=== PATIENT | male | born 1960 | race Caucasian/White ===

== ENCOUNTER 2024-12-04 00:08 | Day surgery (SDC) | payer OTHER, SELFPAY ==
[2024-11-25 10:57] VITALS: BMI 25.4
--- OUTSIDE RECORDS SUMMARY | 2024-12-04 00:11 | XMS_ITS | Clinical Summary ---
Author Organization [facility] Address [address] [place] [id number] Care Team Providers Care Vascular Physician Name Role Phone Unavailable Primary Care Provider Unavailabl e Social History Tobacco Use Types Packs/Day Years Used Date Smoking Tobacco: Never Assessed Sex and Gender Information Value Date Recorded Sex Assigned at Not on file Legal Sex Male 5:52 PM CDT Gender Identity Not on file Sexual Orientation Not on file Plan of Treatment Health Maintenance Due Date Last Done Comments Colorectal Cancer Screening Colonoscopy (10 Years) 1960 Annual Physical 01/15/1963 Hepatitis C 01/15/1978 DTaP, Tdap and Td Vaccines ( 1 - Tdap) 01/15/1979 Pneumococcal Vaccine: 50+ Ye ars (1 of 1 - PCV) 01/15/2010 Zoster Vaccines (1 of 2) 01/15/2010 COVID-19 Vaccine (2023-2 5 season) 2024 RSV Immunization or 60+ Years (1 - 1-dose 75+ series) 01/15/2035 Meningococcal B Vaccine Aged Out No l onger eligible based on patient's age to complete this topic Meningococcal Vaccine Aged Out No saray marry eligible based on patient's age to complete this topic RSV Immunizations Under 20 Months Aged Out No longer eligible based on patient's age to complete this topic Insurance [employer]
[2024-12-04 10:50] VITALS: BP 137/88; PULSE 72; RESP 16; TEMP 36.6; O2SAT 100; BMI 24.4
[2024-12-04] MEDS: LACTATED RINGERS 1,000 ML 150 ML IV CONT (10:54)
--- NOTE | 2024-12-04 12:10 | WPDANESEPPF ---
Anes - Initial Pre Proc Eval Procedure: Operation Date: 12/04/24 14:30 Proposed Procedures p Screening Colonoscopy - Mehdi Hassan MD Date/Time: 12/04/24 12:10 Surgeon: Mehdi Hassan MD Pre Op Diagnosis: Encounter for screening for malignant neoplasm of Patient Data Age: 64 Gender: M Height: 1.83 m Weight: 81.6 kg Last Vital Signs Temp 36.6 C 12/04/24 10:50 Pulse 72 12/04/24 10:50 Resp 16 12/04/24 10:50 BP 137/88 12/04/24 10:50 Pulse Ox 100 12/04/24 10:50 O2 Del Method Room Air 12/04/24 10:50 Allergies Allergy/AdvReac Type Severity Reaction Status Date / Time No Known Allergies Allergy Verified 12/04/24 10:48 Home Medications ?Medication ?Instructions ?Recorded ?Confirmed ?Type sildenafil 100 mg tablet (Viagra) 100 mg PO DAILY PRN sexual 05/05/24 11/25/24 Rx activity #20 tabs lisinopril 10 mg tablet 10 mg PO DAILY #90 tabs 08/04/24 12/04/24 Rx doxylamine succinate 25 mg tablet 25 mg PO QHS PRN sleeping 10/27/24 11/25/24 History (Unisom (doxylamine)) escitalopram oxalate 5 mg tablet 5 mg PO DAILY #90 tabs 10/27/24 12/04/24 Rx triamcinolone acetonide 0.1 % 1 applic topical BID #30 grams 10/27/24 12/04/24 Rx topical cream Patient hx anesthesia problems: none Family hx anesthesia problems: none Results Review: All pre-operative results and documents have been reviewed as part of the pre-operative evaluation. [facility] Past Medical History Medical History Annual physical exam Encounter for screening for malignant neoplasm of prostate Screening cholesterol level Hypertension Erectile dysfunction CRUZ (obstructive sleep apnea) CPAP (continuous positive airway pressure) dependence no authorization required Surgical History Surgical History H/O colonoscopy Family History Family History Other No family history of disorders Social History Social History Smoking status: Former smoker Tobacco type: cigarettes Smoking end date: 08/19/05 Alcohol intake: current Drinks per week: 10 Alcohol use details: beer Substance use: never Substance use type: does not use Do You Feel Safe in your Home?: Yes Lack of Transportation: No Lack of Food: Never True Current Housing: I Have Housing Concerned About Future Housing: No Difficulty Paying Gas/Electric Bills: No Difficulty Paying for Meds: No Currently Unemployed: No Education: Don't Know Difficulty w/ Childcare or Family Care: No Living arrangements: with family Additional living arrangements comments: Occupation/Education: retired Additional occupation/education comments: [employer] [facility] care concerns: No Agree to blood products: Yes Anes - Eval Final PreProcedure Day of Procedure 12/04/24 12:10 Patient weight: normal Heart: regular rate and rhythm Lungs: clear to auscultation Airway: Mallampati scale class II Neurological: alert and oriented Last oral intake: >/= 8 hours ASA classification: III Emergent: no Anesthetic plan: proceed Anesthesia type and monitoring: general GIVS and standard monitoring Results Review: All pre-operative results and documents have been reviewed as part of the pre-operative evaluation. Informed Consent: The patient's anesthetic plan and its attendant risks and benefits were discussed with the patient/family/POA. Questions were solicited and answers provided to the satisfaction of the patient/family/POA.
--- NOTE | 2024-12-04 12:27 | PM.HPGS ---
History of Present Illness History of Present Illness Consent: Risks, benefits, and alternatives have been discussed and questions answered. Patient agrees to proceed with procedure. Chief complaint: Encounter for screening for malignant neoplasm of Narrative: Jc Huggins is a 64 year old male here for screening colonoscopy, last one 10 years ago Review of Systems Review of Systems: All systems reviewed & are unremarkable except as noted in HPI and below PMFSH Past Medical History Medical History (Updated 12/04/24 @ 12:30 by Mehdi Hassan MD) Colon cancer screening Annual physical exam Encounter for screening for malignant neoplasm of prostate Screening cholesterol level Hypertension Erectile dysfunction CRUZ (obstructive sleep apnea) CPAP (continuous positive airway pressure) dependence no authorization required Surgical History Surgical History H/O colonoscopy Family History Family History Other No family history of disorders Social History Social History Smoking status: Former smoker Tobacco type: cigarettes Smoking end date: 08/19/05 Alcohol intake: current Drinks per week: 10 Alcohol use details: beer Substance use: never Substance use type: does not use Do You Feel Safe in your Home?: Yes Lack of Transportation: No Lack of Food: Never True Current Housing: I Have Housing Concerned About Future Housing: No Difficulty Paying Gas/Electric Bills: No Difficulty Paying for Meds: No Currently Unemployed: No Education: Don't Know Difficulty w/ Childcare or Family Care: No Living arrangements: with family Additional living arrangements comments: Occupation/Education: retired Additional occupation/education comments: [employer] Spiritual care concerns: No Agree to blood products: Yes Meds Home Medications and Allergies Home Medications ?Medication ?Instructions ?Recorded ?Confirmed ?Type sildenafil 100 mg tablet (Viagra) 100 mg PO DAILY PRN sexual 05/05/24 11/25/24 Rx activity #20 tabs lisinopril 10 mg tablet 10 mg PO DAILY #90 tabs 08/04/24 12/04/24 Rx doxylamine succinate 25 mg tablet 25 mg PO QHS PRN sleeping 10/27/24 11/25/24 History (Unisom (doxylamine)) escitalopram oxalate 5 mg tablet 5 mg PO DAILY #90 tabs 10/27/24 12/04/24 Rx triamcinolone acetonide 0.1 % 1 applic topical BID #30 grams 10/27/24 12/04/24 Rx topical cream Allergies Allergy/AdvReac Type Severity Reaction Status Date / Time No Known Allergies Allergy Verified 12/04/24 10:48 Vital Signs Vital Signs - 24 hr 12/04/24 10:50 Temperature 97.9 F Pulse Rate 72 Respiratory Rate 16 Blood Pressure 137/88 Pulse Oximetry 100 Oxygen Delivery Room Air Exam Const: General: comfortable and no acute distress HENMT: Face/Nose/Sinus: Normal nares present Eyes: General: appearance normal, both eyes and all related structures Neck: Neck: no JVD Resp: Auscultation: clear to auscultation bilaterally Cardio: Rate: regular rate Rhythm: regular rhythm GI: Inspection: non-distended GI Palp: Yes Soft to palpation Skin: General skin exam: normal color Neuro: General: gait normal Speech: normal speech Extrem: General: normal to inspection Psych: Mental Status: mental status grossly normal Assessment and Plan Assessment and plan (1) Colon cancer screening: Code(s): Z12.11 - Encounter for screening for malignant neoplasm of colon Status: Acute Assessment and Plan: colonoscopy
[2024-12-04 12:46] VITALS: BP 116/70; PULSE 75; RESP 26; O2SAT 97
[2024-12-04 12:56] VITALS: BP 97/57; PULSE 72; RESP 21; O2SAT 100
[2024-12-04 13:06] VITALS: BP 118/81; PULSE 69; RESP 18; O2SAT 100
== END 2024-12-04 13:14 | disposition home or self-care (01) ==
PROVIDERS: PCP Nurse Practitioner Family; Referring Provider Nurse Practitioner Family; Visit Provider Internal Medicine Gastroenterology
PROC: 0DJD8ZZ Inspection of Lower Intestinal Tract, Via Natural or Artificial Opening Endoscopic (ICD-10-PCS; CPT 45378; principal; 2024-12-04 14:30)
DX: Z12.11 Encounter for screening for malignant neoplasm of colon (principal); D12.3 Benign neoplasm of transverse colon; D12.4 Benign neoplasm of descending colon; K64.8 Other hemorrhoids; K57.30 Diverticulosis of large intestine without perforation or abscess without bleeding; I10 Essential (primary) hypertension; N52.9 Male erectile dysfunction, unspecified; G47.33 Obstructive sleep apnea (adult) (pediatric); Z99.89 Dependence on other enabling machines and devices; Z87.891 Personal history of nicotine dependence
CPT/HCPCS: 45385; 88305; J2704; J7120